=== PATIENT | male | born 1985 | race Caucasian/White ===

== ENCOUNTER 2022-08-17 08:48 | Inpatient (IN) | payer OTHER ==
[~2022-08-17] VITALS: Ht 180.3 cm; Wt 165.5 kg
[2022-08-17] MEDS ORDERED: normal saline 1000ML IV soln IV ONE (10:30)
[2022-08-17] MEDS ORDERED: CefTRIAXone 2gm/D5W 50ml BAG 50 ML IV ONE (10:30)
[2022-08-17] MEDS ORDERED: vancomycin/NS 1 GM ADD-VANTAGE 250 ML IV ONE (10:40)
[2022-08-17 11:04] LABS: BASOPHILS % (AUTO) 0.1 % (0-1); EOSINOPHILS % (AUTO) 0 % (0-6); HEMATOCRIT 39.3 % (42.0-52.0); HEMOGLOBIN 13.6 g/dl (14.0-17.9); LYMPHOCYTES # (AUTO) 0.8 X10'3 (1.1-4.8); LYMPHOCYTES % (AUTO) 4.6 % (21-51); MEAN CORPUSCULAR HEMOGLOBIN 30.9 PG (27.0-31.0); MEAN CORPUSCULAR HGB CONC 34.5 g/dL (33.0-36.5); MEAN CORPUSCULAR VOLUME 89.6 FL (78-98); MONOCYTES # (AUTO) 1.5 X10'3 (0-0.9); MONOCYTES % (AUTO) 8.8 % (2-12); NEUTROPHILS # (AUTO) 14.8 X10'3 (1.8-7.7); NEUTROPHILS % (AUTO) 86.5 % (42-75); PLATELET COUNT 224 X10'3 (140-440); RED BLOOD COUNT 4.39 X10'6 (4.70-6.10); RED CELL DISTRIBUTION WIDTH 13.7 % (11.5-14.5); WHITE BLOOD COUNT 17.1 X10'3 (4.5-11.0)
[2022-08-17 11:24] LABS: ALANINE AMINOTRANSFERASE 17 U/L (12-78); ALBUMIN 2.4 G/DL (3.4-5.0); ALBUMIN/GLOBULIN RATIO 0.5 (1.1-1.5); ALKALINE PHOSPHATASE 118 IU/L (46-116); ANION GAP 9 (8-16); ASPARTATE AMINO TRANSFERASE 13 U/L (10-37); BILIRUBIN,TOTAL 0.6 MG/DL (0.1-1.0); BLOOD UREA NITROGEN 13 MG/DL (7-18); BUN/CREATININE RATIO 10.7 (5.4-32.0); CALCIUM 8.6 MG/DL (8.5-10.1); CHLORIDE 97 MMOL/L (99-107); CREATININE 1.21 MG/DL (0.60-1.10); GLUCOSE 122 MG/DL (70-104); MAGNESIUM 1.8 MG/DL (1.5-2.4); SODIUM 130 MMOL/L (135-145); TOTAL CARBON DIOXIDE 24.3 MMOL/L (24-32); TOTAL PROTEIN 7.4 G/DL (6.4-8.2); eGFR 68 ML/MIN
[2022-08-17 11:26] LABS: POTASSIUM 2.9 MMOL/L (3.5-5.1)
[2022-08-17] MEDS ORDERED: POTASSIUM BICARB 20meq eff tab 20 MEQ TABLET.EFF PO ONE (13:05)
[2022-08-17] MEDS ORDERED: ACET325T57 PO (14:18)
[2022-08-17 15:23] LABS: URINE AMPHETAMINE SCREEN NEGATIVE (Neg); URINE BARBITUATE SCREEN NEGATIVE (Neg); URINE BENZODIAZEPINES SCREEN NEGATIVE (Neg); URINE CANNABINOID SCREEN NEGATIVE (Neg); URINE COCAINE SCREEN NEGATIVE (Neg); URINE METHADONE SCREEN NEGATIVE (Neg); URINE OPIATE SCREEN NEGATIVE (Neg); URINE PHENCYCLIDINE SCREEN NEGATIVE (Neg)
[2022-08-17] MEDS: piperacillin/tazo 4.5gm/100ml 100 ML IV SCH (16:56)
[2022-08-17] MEDS ORDERED: HYDROcodone/acetaminophen 5mg/325mg tablet PO PRN (17:25)
[2022-08-17] MEDS ORDERED: acetaminophen 650mg rectal suppository RC PRN (17:25)
[2022-08-17] MEDS ORDERED: morphine 2 MG/ML inj. syringe IV PRN ×2 (17:25)
[2022-08-17] MEDS ORDERED: mag hydrox/Alum hydrox/simeth 30ml oral suspension PO PRN (17:25)
[2022-08-17] MEDS ORDERED: magnesium hydroxide 30ml (MOM) UD suspension PO PRN (17:25)
[2022-08-17] MEDS ORDERED: magnesium Cl slow-release 64mg tablet PO PRN (17:25)
[2022-08-17] MEDS ORDERED: acetaminophen 325mg tablet PO PRN ×2 (17:25)
[2022-08-17] MEDS ORDERED: bisacodyl 10mg suppository rectal RC PRN (17:25)
[2022-08-17] MEDS ORDERED: ondansetron/PF 4mg/2ml inj IV PRN (17:25)
[2022-08-17] MEDS ORDERED: diphenhydrAMINE 25mg capsule PO PRN (17:25)
[2022-08-17] MEDS ORDERED: potassium Cl 40MEQ/1/2NS 520ml 520 ML IV PRN (17:25)
[2022-08-17] MEDS ORDERED: magnesium 4gm in 100ml NS 100 ML IV PRN (17:25)
[2022-08-17] MEDS ORDERED: HYDROcodone/acetaminophen 10/325mg tab PO PRN (17:25)
[2022-08-17 18:54] LABS: HEMOGLOBIN A1C 5.2 % (4.5-6.2)
[2022-08-17 19:11] LABS: CLARITY,URINE SLIGHTLY CLOUDY (Clear); COLOR,URINE YELLOW (Yellow); GLUCOSE, URINE NEGATIVE (Neg); KETONES,URINE >=80 mg/dl (Neg); LEUKOCYTE ESTERASE ,URINE NEGATIVE (Neg); NITRITES, URINE NEGATIVE (Neg); OCCULT BLOOD,URINE SMALL (Neg); PROTEIN,URINE 30 mg/dl (Neg); UROBILINOGEN,URINE 0.2 E.U/dL (0.2-1.0)
[2022-08-17 19:12] LABS: UA COLLECTION TYPE CLN CATCH MIDSTREAM
[2022-08-17 19:17] LABS: CELLULAR CAST 0-4 /LPF (NEGATIVE); HYALINE CASTS 0-3 /LPF (NEGATIVE); MUCUS STRANDS FEW /LPF (Neg); SQUAMOUS EPITHELIAL CELL,UR MODERATE /LPF (FEW)
[2022-08-17 19:18] LABS: COARSE GRANULAR CAST 0-3 /LPF (NEGATIVE)
[2022-08-17 19:20] LABS: AMORPHOUS URATES 2+; BACTERIA,URINE FEW /HPF (Neg); RBC,URINE 0-2 /HPF (0-2); TRANSITIONAL EPI CELLS,URINE FEW /HPF; WBC,URINE 0-4 /HPF (0-4)
[2022-08-17 19:44] LABS: ALBUMIN 2.3 G/DL (3.4-5.0); ANION GAP 9 (8-16); BLOOD UREA NITROGEN 12 MG/DL (7-18); BUN/CREATININE RATIO 10.6 (5.4-32.0); CALCIUM 8.7 MG/DL (8.5-10.1); CHLORIDE 97 MMOL/L (99-107); CREATININE 1.13 MG/DL (0.60-1.10); GLUCOSE 107 MG/DL (70-104); POTASSIUM 3.6 MMOL/L (3.5-5.1); SODIUM 131 MMOL/L (135-145); TOTAL CARBON DIOXIDE 24.7 MMOL/L (24-32); eGFR 74 ML/MIN
[2022-08-17] MEDS: normal saline 1000ml 1,000 ML IV SCH (19:44)
[2022-08-17] MEDS: K and/or MAG REPLACEMENT MC SCH (19:47)
[2022-08-17 21:30] VITALS: BP 150/83
[2022-08-17] MEDS: lactobacillus rhamnosus 10,000 MMU CELLS/CAPSULE PO SCH (21:55)
[2022-08-17] MEDS: heparin, porcine 5000 units/ml vial SQ SCH (21:55)
[2022-08-17] MEDS: docusate sod 100mg capsule PO SCH (21:56)
[2022-08-17] MEDS: vancomycin/NS 1 GM ADD-VANTAGE 250 ML IV SCH (22:16)
[2022-08-18] MEDS ORDERED: piperacillin/tazo 4.5gm/100ml 100 ML IV SCH
[2022-08-18] MEDS: piperacillin/tazo 4.5gm/100ml 100 ML IV SCH ×3 (00:14→15:53)
[2022-08-18 02:00] VITALS: BP 162/82
[2022-08-18] MEDS ORDERED: amLODIPine 5mg tablet PO ONE (03:15)
--- NOTE | 2022-08-18 03:15 | NUR ---
MD Alberto notified of BP 162/82, all other VSS. No prn's ordered. Patient denies any RX meds taken at home. ordered Norvasc 5mg PO x1. Will await pharmacy and give. Patient with no other complaints at this time.
[2022-08-18] MEDS: vancomycin/NS 1 GM ADD-VANTAGE 250 ML IV SCH ×3 (03:57→20:37)
--- NOTE | 2022-08-18 06:18 | NUR ---
Problems reprioritized. Patient report given, questions answered & plan of care reviewed with Kendell. Addendum: 08/18/22 at 0619 by Demi Pinzon RN Amended: Links added.
[2022-08-18] MEDS: normal saline 1000ml 1,000 ML IV SCH ×2 (06:45→20:42)
[2022-08-18 07:00] VITALS: BP 176/93
[2022-08-18 07:06] LABS: BASOPHILS % (AUTO) 0.1 % (0-1); EOSINOPHILS % (AUTO) 0 % (0-6); HEMATOCRIT 35.3 % (42.0-52.0); LYMPHOCYTES % (AUTO) 5.4 % (21-51); MEAN CORPUSCULAR HEMOGLOBIN 30.4 PG (27.0-31.0); MEAN CORPUSCULAR VOLUME 89.5 FL (78-98); MEAN PLATELET VOLUME 8.3 FL (7.4-10.4); MONOCYTES # (AUTO) 1.7 X10'3 (0-0.9); MONOCYTES % (AUTO) 9.9 % (2-12); NEUTROPHILS # (AUTO) 14.9 X10'3 (1.8-7.7); NEUTROPHILS % (AUTO) 84.6 % (42-75); PLATELET COUNT 226 X10'3 (140-440); RED BLOOD COUNT 3.95 X10'6 (4.70-6.10); RED CELL DISTRIBUTION WIDTH 13.9 % (11.5-14.5); WHITE BLOOD COUNT 17.7 X10'3 (4.5-11.0)
[2022-08-18 07:26] LABS: ALANINE AMINOTRANSFERASE 23 U/L (12-78); ALBUMIN/GLOBULIN RATIO 0.4 (1.1-1.5); ALKALINE PHOSPHATASE 141 IU/L (46-116); ANION GAP 8 (8-16); ASPARTATE AMINO TRANSFERASE 25 U/L (10-37); BILIRUBIN,TOTAL 0.9 MG/DL (0.1-1.0); BLOOD UREA NITROGEN 11 MG/DL (7-18); BUN/CREATININE RATIO 10.2 (5.4-32.0); CALCIUM 8.1 MG/DL (8.5-10.1); CHLORIDE 99 MMOL/L (99-107); CHOL/HDL RATIO 6.4 (0.00-4.99); CHOLESTEROL 103 MG/DL (0-200); CREATININE 1.08 MG/DL (0.60-1.10); GLUCOSE 107 MG/DL (70-104); HDL CHOLESTEROL 16 MG/DL (35-60); LDL CHOLESTEROL 65 MG/DL (50-100); MAGNESIUM 1.9 MG/DL (1.5-2.4); PHOSPHORUS 2.4 MG/DL (2.3-4.5); SODIUM 133 MMOL/L (135-145); TOTAL PROTEIN 6.6 G/DL (6.4-8.2); TRIGLYCERIDES 137 MG/DL (20-135); eGFR 78 ML/MIN
[2022-08-18] MEDS: docusate sod 100mg capsule PO SCH ×2 (08:00→20:00)
[2022-08-18] MEDS: K and/or MAG REPLACEMENT MC SCH ×2 (08:00→20:00)
--- NOTE | 2022-08-18 08:10 | NUR ---
Message: Angie Hooper Pt has a critical lab value K - 3.0 Kendell 8139
--- NOTE | 2022-08-18 08:15 | NUR ---
Noted pt on carb controlled diet w/ A1C 5.2%; BRITTNY d/w RN regarding liberalizing to regular diet if MD agreeable. Addendum: 08/18/22 at [address] Amended: Links added.
[2022-08-18] MEDS: lactobacillus rhamnosus 10,000 MMU CELLS/CAPSULE PO SCH ×2 (08:49→20:40)
[2022-08-18] MEDS: potassium Cl 20 mEq SR tablet PO PRN ×3 (08:49→20:39)
[2022-08-18] MEDS: heparin, porcine 5000 units/ml vial SQ SCH ×2 (08:50→20:40)
--- NOTE | 2022-08-18 09:35 | NUR ---
Pt had a high BP of 176/93(112) this morning. I retook the measurement and pt was at 152/86. Will continue to monitor.
[2022-08-18 11:00] VITALS: BP 153/81
[2022-08-18 15:30] VITALS: BP 151/85
[2022-08-18 18:00] VITALS: BP 168/89
[2022-08-18] MEDS ORDERED: VANCOMYCIN LEVEL IV ONE (19:30)
[2022-08-18 22:00] VITALS: BP 147/82
[2022-08-19] VITALS (7 sets, daily range): BP systolic 94–152; BP diastolic 58–87
[2022-08-19] MEDS: piperacillin/tazo 4.5gm/100ml 100 ML IV SCH ×3 (00:11→16:23)
[2022-08-19] MEDS: vancomycin/NS 1 GM ADD-VANTAGE 250 ML IV SCH ×2 (04:32→05:03)
--- NOTE | 2022-08-19 06:46 | NUR ---
Problems reprioritized. Patient report given, questions answered & plan of care reviewed with CHAPIN Samayoa.
[2022-08-19 07:27] LABS: BASOPHILS % (AUTO) 0.2 % (0-1); EOSINOPHILS % (AUTO) 0.2 % (0-6); HEMATOCRIT 35.6 % (42.0-52.0); HEMOGLOBIN 12.2 g/dl (14.0-17.9); LYMPHOCYTES # (AUTO) 1.3 X10'3 (1.1-4.8); LYMPHOCYTES % (AUTO) 7.6 % (21-51); MEAN CORPUSCULAR HEMOGLOBIN 31.1 PG (27.0-31.0); MEAN CORPUSCULAR HGB CONC 34.3 g/dL (33.0-36.5); MEAN CORPUSCULAR VOLUME 90.5 FL (78-98); MEAN PLATELET VOLUME 7.9 FL (7.4-10.4); MONOCYTES # (AUTO) 1.5 X10'3 (0-0.9); MONOCYTES % (AUTO) 9.3 % (2-12); NEUTROPHILS # (AUTO) 13.8 X10'3 (1.8-7.7); NEUTROPHILS % (AUTO) 82.7 % (42-75); PLATELET COUNT 255 X10'3 (140-440); RED BLOOD COUNT 3.94 X10'6 (4.70-6.10); RED CELL DISTRIBUTION WIDTH 13.9 % (11.5-14.5); WHITE BLOOD COUNT 16.7 X10'3 (4.5-11.0)
[2022-08-19] MEDS: lactobacillus rhamnosus 10,000 MMU CELLS/CAPSULE PO SCH ×2 (07:29→21:35)
[2022-08-19] MEDS: heparin, porcine 5000 units/ml vial SQ SCH ×2 (07:30→21:35)
[2022-08-19 07:53] LABS: ALANINE AMINOTRANSFERASE 33 U/L (12-78); ALBUMIN 1.9 G/DL (3.4-5.0); ALBUMIN/GLOBULIN RATIO 0.4 (1.1-1.5); ALKALINE PHOSPHATASE 220 IU/L (46-116); ANION GAP 8 (8-16); ASPARTATE AMINO TRANSFERASE 34 U/L (10-37); BILIRUBIN,TOTAL 0.9 MG/DL (0.1-1.0); BLOOD UREA NITROGEN 12 MG/DL (7-18); BUN/CREATININE RATIO 12.9 (5.4-32.0); CALCIUM 8.3 MG/DL (8.5-10.1); CHLORIDE 99 MMOL/L (99-107); CREATININE 0.93 MG/DL (0.60-1.10); GLUCOSE 90 MG/DL (70-104); MAGNESIUM 1.9 MG/DL (1.5-2.4); PHOSPHORUS 2.4 MG/DL (2.3-4.5); POTASSIUM 3.3 MMOL/L (3.5-5.1); SODIUM 131 MMOL/L (135-145); TOTAL PROTEIN 6.8 G/DL (6.4-8.2); eGFR > 90 ML/MIN
[2022-08-19] MEDS: K and/or MAG REPLACEMENT MC SCH ×2 (08:00→20:00)
[2022-08-19] MEDS: docusate sod 100mg capsule PO SCH ×2 (08:00→20:00)
[2022-08-19] MEDS: normal saline 1000ml 1,000 ML IV SCH ×2 (09:25→21:30)
[2022-08-19] MEDS: furosemide 20 MG/2 ML vial IV SCH ×2 (10:06→21:34)
[2022-08-19] MEDS: VANCOmycin 1250MG/NS 250ml Bag 250 ML IV SCH ×2 (12:42→21:00)
--- NOTE | 2022-08-19 13:29 | NUR ---
PRESSURE ULCER EDUCATION: DEFINITION: A pressure ulcer is an area of skin that breaks down when you stay in one position too long. The constant pressure against the skin reduces the blood flow to that area and the affected tissue dies. CAUSES: "Being bedridden or in a wheelchair "Fragile skin "Having a chronic condition, such as diabetes or vascular disease "Inability to move certain parts of your body without assistance "Older age "Incontinence of urine or stool SYMPTOMS: "A reddened area that DOES NOT turn white when pressed on - this can be the beginning of a pressure ulcer "A blister, deep sore or a crater - these can be advanced pressure ulcers FIRST AID: "Relieve the pressure on this area "Keep the area clean and dry "Call your primary doctor if you see any of the above symptoms "DO NOT massage the area "DO NOT use a donut shaped or ring shaped pillow- these actually interfere with the blood flow and cause complications PREVENTION: "Check for pressure ulcers everyday "Change position at least every two hours to relieve pressure "Use items that help relieve pressure- pillows, sheepskin, foam padding, and powders. "Keep skin clean and dry "Eat healthy well balanced meals "Exercise daily IF YOU SEE ANY OF THESE SYMPTOMS WHILE IN THE HOSPITAL - TELL YOUR NURSE IMMEDIATELY. IF YOU SEE ANY OF THESE SYMPTOMS WHILE AT HOME OR HAVE ANY QUESTIONS OR CONCERNS ABOUT PRESSURE ULCERS - CALL YOUR PRIMARY DOCTOR IMMEDIATELY. Addendum: 08/19/22 at 1329 by Karol Gould RN Amended: Links added.
[2022-08-19] MEDS: potassium Cl 20 mEq SR tablet PO PRN ×2 (15:00→21:34)
--- NOTE | 2022-08-19 18:33 | NUR ---
Patient in room PCU 3010. I have received report from Danita SAMSON and had the opportunity to ask questions and assume patient care.
[2022-08-20] MEDS: piperacillin/tazo 4.5gm/100ml 100 ML IV SCH ×4 (01:40→23:18)
[2022-08-20 02:00] VITALS: BP 123/75
[2022-08-20] MEDS: potassium Cl 20 mEq SR tablet PO PRN ×3 (02:08→16:44)
[2022-08-20] MEDS: VANCOmycin 1250MG/NS 250ml Bag 250 ML IV SCH ×2 (05:27→13:39)
[2022-08-20 06:00] VITALS: BP 162/90
[2022-08-20 06:46] LABS: BASOPHILS # (AUTO) 0.1 X10'3 (0-0.2); BASOPHILS % (AUTO) 0.6 % (0-1); EOSINOPHILS # (AUTO) 0.1 X10'3 (0-0.9); EOSINOPHILS % (AUTO) 0.6 % (0-6); HEMATOCRIT 32.5 % (42.0-52.0); HEMOGLOBIN 11.2 g/dl (14.0-17.9); LYMPHOCYTES # (AUTO) 1.8 X10'3 (1.1-4.8); LYMPHOCYTES % (AUTO) 11.2 % (21-51); MEAN CORPUSCULAR HEMOGLOBIN 31.1 PG (27.0-31.0); MEAN CORPUSCULAR HGB CONC 34.5 g/dL (33.0-36.5); MEAN CORPUSCULAR VOLUME 90.2 FL (78-98); MEAN PLATELET VOLUME 7.5 FL (7.4-10.4); MONOCYTES # (AUTO) 1.5 X10'3 (0-0.9); MONOCYTES % (AUTO) 9.8 % (2-12); NEUTROPHILS # (AUTO) 12.1 X10'3 (1.8-7.7); NEUTROPHILS % (AUTO) 77.8 % (42-75); PLATELET COUNT 310 X10'3 (140-440); RED BLOOD COUNT 3.61 X10'6 (4.70-6.10); RED CELL DISTRIBUTION WIDTH 13.8 % (11.5-14.5); WHITE BLOOD COUNT 15.6 X10'3 (4.5-11.0)
[2022-08-20 07:11] LABS: ALANINE AMINOTRANSFERASE 45 U/L (12-78); ALBUMIN 1.7 G/DL (3.4-5.0); ALBUMIN/GLOBULIN RATIO 0.4 (1.1-1.5); ALKALINE PHOSPHATASE 270 IU/L (46-116); ANION GAP 7 (8-16); ASPARTATE AMINO TRANSFERASE 34 U/L (10-37); BILIRUBIN,TOTAL 0.8 MG/DL (0.1-1.0); BLOOD UREA NITROGEN 8 MG/DL (7-18); BUN/CREATININE RATIO 8.7 (5.4-32.0); CALCIUM 8.2 MG/DL (8.5-10.1); CHLORIDE 100 MMOL/L (99-107); CREATININE 0.92 MG/DL (0.60-1.10); GLUCOSE 88 MG/DL (70-104); MAGNESIUM 1.7 MG/DL (1.5-2.4); PHOSPHORUS 2.8 MG/DL (2.3-4.5); POTASSIUM 3.2 MMOL/L (3.5-5.1); SODIUM 134 MMOL/L (135-145); TOTAL CARBON DIOXIDE 26.7 MMOL/L (24-32); TOTAL PROTEIN 6.4 G/DL (6.4-8.2); eGFR > 90 ML/MIN
[2022-08-20 07:23] LABS: GIANT PLATELET FEW; PLATELET ESTIMATE NORMAL; TOTAL CELLS COUNTED 100
[2022-08-20] MEDS: K and/or MAG REPLACEMENT MC SCH ×2 (08:00→19:12)
[2022-08-20] MEDS: docusate sod 100mg capsule PO SCH ×2 (08:00→19:13)
[2022-08-20] MEDS ORDERED: PERFLUTREN PROTEIN-A MICROSPHR (Optison) 0.22 MG/ML 3ML VIAL IV ONE (08:20)
[2022-08-20] MEDS: furosemide 20 MG/2 ML vial IV SCH ×2 (08:42→20:28)
[2022-08-20] MEDS: heparin, porcine 5000 units/ml vial SQ SCH ×2 (08:43→20:29)
--- NOTE | 2022-08-20 08:48 | NUR ---
Problems reprioritized. Patient report given, questions answered & plan of care reviewed with Danita SAMSON.
[2022-08-20] MEDS: lactobacillus rhamnosus 10,000 MMU CELLS/CAPSULE PO SCH ×2 (08:52→20:28)
[2022-08-20 12:02] VITALS: BP 157/97
[2022-08-20] MEDS ORDERED: VANCOMYCIN LEVEL IV ONE (12:30)
[2022-08-20 17:30] VITALS: BP 122/72
[2022-08-20] MEDS: VANCOMYCIN 1,500MG in normal saline IV soln 300 ML IV SCH (21:26)
[2022-08-21 02:00] VITALS: BP 148/85
[2022-08-21] MEDS: VANCOMYCIN 1,500MG in normal saline IV soln 300 ML IV SCH ×3 (04:29→21:07)
[2022-08-21 06:00] VITALS: BP 145/86
[2022-08-21 06:36] LABS: BASOPHILS # (AUTO) 0.1 X10'3 (0-0.2); BASOPHILS % (AUTO) 0.5 % (0-1); EOSINOPHILS # (AUTO) 0.2 X10'3 (0-0.9); EOSINOPHILS % (AUTO) 1.1 % (0-6); HEMATOCRIT 33.6 % (42.0-52.0); HEMOGLOBIN 11.7 g/dl (14.0-17.9); LYMPHOCYTES # (AUTO) 2.1 X10'3 (1.1-4.8); LYMPHOCYTES % (AUTO) 11.1 % (21-51); MEAN CORPUSCULAR HEMOGLOBIN 31.3 PG (27.0-31.0); MEAN CORPUSCULAR VOLUME 89.6 FL (78-98); MEAN PLATELET VOLUME 7.5 FL (7.4-10.4); MONOCYTES # (AUTO) 1.6 X10'3 (0-0.9); MONOCYTES % (AUTO) 8.7 % (2-12); NEUTROPHILS # (AUTO) 14.7 X10'3 (1.8-7.7); NEUTROPHILS % (AUTO) 78.6 % (42-75); PLATELET COUNT 430 X10'3 (140-440); RED BLOOD COUNT 3.75 X10'6 (4.70-6.10); RED CELL DISTRIBUTION WIDTH 13.9 % (11.5-14.5); WHITE BLOOD COUNT 18.7 X10'3 (4.5-11.0)
[2022-08-21 06:50] LABS: ALANINE AMINOTRANSFERASE 57 U/L (12-78); ALBUMIN 1.8 G/DL (3.4-5.0); ALBUMIN/GLOBULIN RATIO 0.3 (1.1-1.5); ALKALINE PHOSPHATASE 302 IU/L (46-116); ANION GAP 7 (8-16); ASPARTATE AMINO TRANSFERASE 43 U/L (10-37); BILIRUBIN,TOTAL 0.7 MG/DL (0.1-1.0); BLOOD UREA NITROGEN 8 MG/DL (7-18); BUN/CREATININE RATIO 8.7 (5.4-32.0); CHLORIDE 101 MMOL/L (99-107); CREATININE 0.92 MG/DL (0.60-1.10); GLUCOSE 92 MG/DL (70-104); MAGNESIUM 1.8 MG/DL (1.5-2.4); POTASSIUM 3.3 MMOL/L (3.5-5.1); SODIUM 137 MMOL/L (135-145); TOTAL CARBON DIOXIDE 29.4 MMOL/L (24-32); eGFR > 90 ML/MIN
[2022-08-21 07:27] LABS: PLATELET ESTIMATE NORMAL; TOTAL CELLS COUNTED 100
[2022-08-21] MEDS: lactobacillus rhamnosus 10,000 MMU CELLS/CAPSULE PO SCH ×2 (07:57→19:48)
[2022-08-21] MEDS: heparin, porcine 5000 units/ml vial SQ SCH ×2 (07:57→19:50)
[2022-08-21] MEDS: docusate sod 100mg capsule PO SCH (07:58)
[2022-08-21] MEDS: furosemide 20 MG/2 ML vial IV SCH ×2 (08:00→19:50)
[2022-08-21] MEDS: K and/or MAG REPLACEMENT MC SCH ×2 (08:00→19:58)
[2022-08-21] MEDS: piperacillin/tazo 4.5gm/100ml 100 ML IV SCH ×2 (08:04→15:58)
[2022-08-21 09:41] LABS: C-REACTIVE PROTEIN 9.71 MG/DL (0.0-0.5)
[2022-08-21] MEDS ORDERED: potassium Cl 40MEQ/1/2NS 520ml 520 ML IV PRN ×2 (10:10)
[2022-08-21] MEDS ORDERED: potassium Cl 20 mEq SR tablet PO PRN (10:10)
[2022-08-21] MEDS: potassium Cl 20 mEq SR tablet PO PRN ×3 (10:46→19:49)
[2022-08-21] MEDS ORDERED: iohexol 300mg/ml 100ml inj. ONE (12:35)
--- NOTE | 2022-08-21 13:43 | NUR ---
I REVIEWED ENVIRONMENTAL MANAGEMENT SPECIALIST, PHYSICAL ASSESSMENT OF PATIENT, I AGREE W/PHYSICAL ASSESSMENT OF PT
--- NOTE | 2022-08-21 18:18 | NUR ---
Report given to RN
[2022-08-21] MEDS ORDERED: VANCOMYCIN LEVEL IV ONE (20:30)
[2022-08-22] MEDS: piperacillin/tazo 4.5gm/100ml 100 ML IV SCH ×2 (00:14→08:38)
[2022-08-22] MEDS: VANCOMYCIN 1,500MG in normal saline IV soln 300 ML IV SCH (05:35)
[2022-08-22 06:00] VITALS: BP 142/84
[2022-08-22 06:03] LABS: BASOPHILS # (AUTO) 0.1 X10'3 (0-0.2); BASOPHILS % (AUTO) 0.5 % (0-1); EOSINOPHILS # (AUTO) 0.3 X10'3 (0-0.9); EOSINOPHILS % (AUTO) 1.3 % (0-6); HEMOGLOBIN 11.8 g/dl (14.0-17.9); LYMPHOCYTES # (AUTO) 2.4 X10'3 (1.1-4.8); LYMPHOCYTES % (AUTO) 10.9 % (21-51); MEAN CORPUSCULAR HEMOGLOBIN 30.4 PG (27.0-31.0); MEAN CORPUSCULAR HGB CONC 33.7 g/dL (33.0-36.5); MEAN CORPUSCULAR VOLUME 90.3 FL (78-98); MEAN PLATELET VOLUME 7.5 FL (7.4-10.4); MONOCYTES # (AUTO) 1.4 X10'3 (0-0.9); MONOCYTES % (AUTO) 6.2 % (2-12); NEUTROPHILS # (AUTO) 17.9 X10'3 (1.8-7.7); NEUTROPHILS % (AUTO) 81.1 % (42-75); PLATELET COUNT 476 X10'3 (140-440); RED BLOOD COUNT 3.87 X10'6 (4.70-6.10); WHITE BLOOD COUNT 22.1 X10'3 (4.5-11.0)
[2022-08-22 06:07] LABS: ALANINE AMINOTRANSFERASE 68 U/L (12-78); ALBUMIN 1.8 G/DL (3.4-5.0); ALBUMIN/GLOBULIN RATIO 0.3 (1.1-1.5); ALKALINE PHOSPHATASE 276 IU/L (46-116); ANION GAP 6 (8-16); ASPARTATE AMINO TRANSFERASE 50 U/L (10-37); BILIRUBIN,TOTAL 0.5 MG/DL (0.1-1.0); BLOOD UREA NITROGEN 6 MG/DL (7-18); BUN/CREATININE RATIO 6.1 (5.4-32.0); CALCIUM 8.1 MG/DL (8.5-10.1); CHLORIDE 100 MMOL/L (99-107); CREATININE 0.98 MG/DL (0.60-1.10); GLUCOSE 94 MG/DL (70-104); MAGNESIUM 1.8 MG/DL (1.5-2.4); PHOSPHORUS 3.5 MG/DL (2.3-4.5); POTASSIUM 3.4 MMOL/L (3.5-5.1); SODIUM 135 MMOL/L (135-145); TOTAL CARBON DIOXIDE 28.6 MMOL/L (24-32); TOTAL PROTEIN 7.6 G/DL (6.4-8.2); eGFR 87 ML/MIN
--- NOTE | 2022-08-22 06:25 | NUR ---
Report received from CHAPIN Carter Addendum: 08/22/22 at 0634 by Tiffanie Serna LVN, LVN Report received from CHAPIN Colby.
[2022-08-22] MEDS: furosemide 20 MG/2 ML vial IV SCH (07:10)
[2022-08-22] MEDS: lactobacillus rhamnosus 10,000 MMU CELLS/CAPSULE PO SCH ×2 (07:19→19:31)
[2022-08-22] MEDS: heparin, porcine 5000 units/ml vial SQ SCH ×2 (07:19→19:31)
[2022-08-22] MEDS: potassium Cl 20 mEq SR tablet PO PRN ×3 (07:19→23:00)
[2022-08-22 07:27] LABS: PLATELET ESTIMATE INCREASED; TOTAL CELLS COUNTED 100
[2022-08-22] MEDS: K and/or MAG REPLACEMENT MC SCH ×2 (08:00→20:00)
[2022-08-22] MEDS: cefazolin/dext.iso 2gm/100ml 100 ML IV SCH ×4 (11:00→23:04)
--- NOTE | 2022-08-22 11:27 | NUR ---
per pharmacy do not hand the 1100 cefazolin right after the 1038 dose. Non admin and continue with normal schedule after that
--- NOTE | 2022-08-22 12:25 | NUR ---
Initial: Pt admit DX RLE cellulitis/edema, anemia, and OLIVIA per EMR. PO ~75-100% avg initial carb controlled/fluid restricted diet now w/ mostly 100% recent regular/fluid restricted meals meeting estimated needs. Dietary notified to send double eggs WB for satiety given stature. LBM 08/22 per EMR. No nutrition interventions at this time. Will continue to follow. Rec: 1. continue regular/fluid-restricted diet per MD; double eggs WB for satiety 2. bowel care per rx 3. daily scaled wts Addendum: 08/22/22 at [address] Amended: Links added.
--- NOTE | 2022-08-22 15:01 | NUR ---
i reviewed manager privacy physical assessment of pt and i agree w/physical assessment
--- NOTE | 2022-08-22 18:15 | NUR ---
gave report to lorena beltran
--- NOTE | 2022-08-22 18:33 | NUR ---
Patient in bed with the head of the bed in semi-fowlers position. Patient watching TV and has no signs or symptoms of distress. Call light within reach and all other personal belongings within reach
--- NOTE | 2022-08-23 05:45 | NUR ---
Patient in bed with the bed with the head of the bed, elevated to semi-fowlers position. Patient is awake resting in bed. Patient has no signs or symptoms of distress. call light within reach and all personal belongings within reach
[2022-08-23] MEDS: cefazolin/dext.iso 2gm/100ml 100 ML IV SCH ×2 (05:57→13:19)
--- NOTE | 2022-08-23 06:44 | NUR ---
Patient in room PCU 3010. I have received report from Amado and had the opportunity to ask questions and assume patient care.
[2022-08-23 07:00] VITALS: BP 160/96
[2022-08-23] MEDS: K and/or MAG REPLACEMENT MC SCH ×2 (08:00→20:00)
[2022-08-23] MEDS: heparin, porcine 5000 units/ml vial SQ SCH ×2 (08:52→19:08)
[2022-08-23] MEDS: furosemide 20 MG/2 ML vial IV SCH (08:52)
[2022-08-23] MEDS: lactobacillus rhamnosus 10,000 MMU CELLS/CAPSULE PO SCH ×2 (08:52→19:05)
[2022-08-23 09:50] VITALS: BP 145/80
--- NOTE | 2022-08-23 13:07 | NUR ---
Spoke with infection control MD, no new changes received, continue abx as ordered
[2022-08-23 13:33] LABS: BASOPHILS # (AUTO) 0.1 X10'3 (0-0.2); BASOPHILS % (AUTO) 0.6 % (0-1); EOSINOPHILS # (AUTO) 0.2 X10'3 (0-0.9); EOSINOPHILS % (AUTO) 1.3 % (0-6); HEMATOCRIT 38.7 % (42.0-52.0); HEMOGLOBIN 12.9 g/dl (14.0-17.9); LYMPHOCYTES # (AUTO) 1.6 X10'3 (1.1-4.8); LYMPHOCYTES % (AUTO) 9.2 % (21-51); MEAN CORPUSCULAR HEMOGLOBIN 30.4 PG (27.0-31.0); MEAN CORPUSCULAR HGB CONC 33.2 g/dL (33.0-36.5); MEAN CORPUSCULAR VOLUME 91.4 FL (78-98); MEAN PLATELET VOLUME 7.1 FL (7.4-10.4); MONOCYTES # (AUTO) 1.2 X10'3 (0-0.9); MONOCYTES % (AUTO) 6.9 % (2-12); NEUTROPHILS # (AUTO) 14.7 X10'3 (1.8-7.7); PLATELET COUNT 539 X10'3 (140-440); RED BLOOD COUNT 4.23 X10'6 (4.70-6.10); WHITE BLOOD COUNT 17.9 X10'3 (4.5-11.0)
[2022-08-23 13:50] LABS: PHOSPHORUS 3.2 MG/DL (2.3-4.5)
[2022-08-23 13:59] LABS: TOTAL CELLS COUNTED 100
[2022-08-23 14:00] LABS: PLATELET ESTIMATE INCREASED
[2022-08-23 15:00] LABS: ALBUMIN 1.9 G/DL (3.4-5.0); ANION GAP 5 (8-16); BLOOD UREA NITROGEN 11 MG/DL (7-18); BUN/CREATININE RATIO 10.4 (5.4-32.0); CALCIUM 8.4 MG/DL (8.5-10.1); CHLORIDE 100 MMOL/L (99-107); CREATININE 1.06 MG/DL (0.60-1.10); GLUCOSE 116 MG/DL (70-104); POTASSIUM 3.6 MMOL/L (3.5-5.1); SODIUM 133 MMOL/L (135-145); TOTAL CARBON DIOXIDE 28.4 MMOL/L (24-32); eGFR 80 ML/MIN
--- NOTE | 2022-08-23 16:30 | NUR ---
Patient in bed with the head of the bed elevated to semi-fowlers position. Patient has no signs or symptoms of distress. call light within reach of the patient and all personal belongings within reach.
--- NOTE | 2022-08-23 18:16 | NUR ---
Problems reprioritized. Patient report given, questions answered & plan of care reviewed with Amado.
[2022-08-23] MEDS ORDERED: clindamycin-Cleocin 900mg/D5W 50 ML IV SCH (21:00)
[2022-08-24] MEDS: clindamycin-Cleocin 900mg/D5W 50 ML IV SCH ×3 (00:12→15:20)
--- NOTE | 2022-08-24 05:27 | NUR ---
Patient in bed with the head of the bed elevated to semi-fowlers position. Patient resting with his eyes closed. Patient has no signs or symptoms of distress. Call light within reach and all personal belongings within reach
[2022-08-24 06:00] VITALS: BP 150/85
[2022-08-24 06:51] LABS: BASOPHILS % (AUTO) 0.1 % (0-1); EOSINOPHILS # (AUTO) 0.4 X10'3 (0-0.9); EOSINOPHILS % (AUTO) 2.7 % (0-6); HEMATOCRIT 38.7 % (42.0-52.0); LYMPHOCYTES # (AUTO) 1.5 X10'3 (1.1-4.8); LYMPHOCYTES % (AUTO) 10.4 % (21-51); MEAN CORPUSCULAR HEMOGLOBIN 30.6 PG (27.0-31.0); MEAN CORPUSCULAR HGB CONC 33.6 g/dL (33.0-36.5); MEAN CORPUSCULAR VOLUME 91.1 FL (78-98); MEAN PLATELET VOLUME 7.1 FL (7.4-10.4); MONOCYTES # (AUTO) 1.1 X10'3 (0-0.9); NEUTROPHILS % (AUTO) 78.8 % (42-75); PLATELET COUNT 485 X10'3 (140-440); RED BLOOD COUNT 4.25 X10'6 (4.70-6.10); RED CELL DISTRIBUTION WIDTH 13.9 % (11.5-14.5); WHITE BLOOD COUNT 13.9 X10'3 (4.5-11.0)
--- NOTE | 2022-08-24 06:55 | NUR ---
Patient in room PCU 3010. I have received report from Amado and had the opportunity to ask questions and assume patient care.
[2022-08-24 07:07] LABS: ALANINE AMINOTRANSFERASE 52 U/L (12-78); ALBUMIN/GLOBULIN RATIO 0.3 (1.1-1.5); ALKALINE PHOSPHATASE 174 IU/L (46-116); ANION GAP 4 (8-16); ASPARTATE AMINO TRANSFERASE 31 U/L (10-37); BILIRUBIN,TOTAL 0.4 MG/DL (0.1-1.0); BLOOD UREA NITROGEN 9 MG/DL (7-18); BUN/CREATININE RATIO 8.8 (5.4-32.0); CALCIUM 8.7 MG/DL (8.5-10.1); CHLORIDE 101 MMOL/L (99-107); CREATININE 1.02 MG/DL (0.60-1.10); GLUCOSE 91 MG/DL (70-104); POTASSIUM 3.6 MMOL/L (3.5-5.1); SODIUM 133 MMOL/L (135-145); TOTAL CARBON DIOXIDE 27.7 MMOL/L (24-32); TOTAL PROTEIN 8.1 G/DL (6.4-8.2); eGFR 83 ML/MIN
[2022-08-24] MEDS: lactobacillus rhamnosus 10,000 MMU CELLS/CAPSULE PO SCH ×2 (07:32→19:51)
[2022-08-24] MEDS: furosemide 20 MG/2 ML vial IV SCH (07:32)
[2022-08-24] MEDS: heparin, porcine 5000 units/ml vial SQ SCH ×2 (07:33→19:53)
[2022-08-24 07:35] VITALS: BP 154/91
[2022-08-24] MEDS: K and/or MAG REPLACEMENT MC SCH ×2 (08:00→20:00)
[2022-08-24 11:00] VITALS: BP 146/84
[2022-08-24 18:00] VITALS: BP 162/87
--- NOTE | 2022-08-24 18:05 | NUR ---
Student Medication Administration: For this medication-pass time frame, all medication were reviewed, dispensed, administered and documented per hospital policy by [facility] meka Poole along with RN.
--- NOTE | 2022-08-24 18:19 | NUR ---
Problems reprioritized. Patient report given, questions answered & plan of care reviewed with Amado.
--- NOTE | 2022-08-24 20:26 | NUR ---
Patient in bed with the head of the bed elevated to semi-fowlers position. Patient in bed awake. Patient has no signs or symptoms of distress. Call light within reach of the patient and all personal belongings within reach
[2022-08-25] MEDS: clindamycin-Cleocin 900mg/D5W 50 ML IV SCH
[2022-08-25] MEDS ORDERED: diphenhydrAMINE 50 mg/ml inj IV PRN (00:15)
[2022-08-25 02:00] VITALS: BP 146/85
--- NOTE | 2022-08-25 05:16 | NUR ---
Patient in bed with the head of the bed elevated to semi-fowlers position. Patient is resting with his eyes closed. Patient has no signs or symptoms of distress. Call light within reach of patient and all personal belongings within reach of patient.
[2022-08-25 06:00] VITALS: BP 148/82
[2022-08-25 07:07] LABS: ALANINE AMINOTRANSFERASE 47 U/L (12-78); ALBUMIN/GLOBULIN RATIO 0.3 (1.1-1.5); ALKALINE PHOSPHATASE 163 IU/L (46-116); ANION GAP 6 (8-16); ASPARTATE AMINO TRANSFERASE 31 U/L (10-37); BILIRUBIN,TOTAL 0.4 MG/DL (0.1-1.0); BLOOD UREA NITROGEN 9 MG/DL (7-18); BUN/CREATININE RATIO 9.2 (5.4-32.0); CALCIUM 8.4 MG/DL (8.5-10.1); CHLORIDE 102 MMOL/L (99-107); CREATININE 0.98 MG/DL (0.60-1.10); GLUCOSE 84 MG/DL (70-104); POTASSIUM 3.8 MMOL/L (3.5-5.1); SODIUM 136 MMOL/L (135-145); TOTAL CARBON DIOXIDE 27.8 MMOL/L (24-32); TOTAL PROTEIN 8.3 G/DL (6.4-8.2); eGFR 87 ML/MIN
--- NOTE | 2022-08-25 07:40 | NUR ---
Message: sasha beltran [phone] re: tracie ochoa 3010. pt has no iv access. ok for picc to place midline
[2022-08-25] MEDS: K and/or MAG REPLACEMENT MC SCH (08:00)
[2022-08-25] MEDS: lactobacillus rhamnosus 10,000 MMU CELLS/CAPSULE PO SCH (08:44)
[2022-08-25] MEDS: heparin, porcine 5000 units/ml vial SQ SCH (08:45)
[2022-08-25] MEDS ORDERED: clindamycin 150mg capsule PO ONE (11:35)
--- NOTE | 2022-08-25 11:53 | NUR ---
DM Consult: Pt w/ no PMH DM A1C 5.2% not appropriate for ed. Glu WNL on regular diet/fluid-restricted at this time per EMR. Addendum: 08/25/22 at [address] Amended: Links added. Addendum: 08/25/22 at [address] *CORRECTION* Nutrition Consult "pt/family ed": Per RN, pt requesting general healthy diet nutrition therapy ed focusing on wt loss. Pt seen by BRITTNY for thorough written/verbal general healthy nutrition diet ed w/ RD contact information provided. Pt reports typically drinks most calories from sweetened/caffeinated beverages typically eats on once/day at night. RD reviewed general healthy meal frequency and balanced meal planning guidelines w/ pt. BRITTNY encouraged pt to contact dietitian's office if further nutrition questions/concerns.
[2022-08-25 12:21] VITALS: BP 163/91
--- NOTE | 2022-08-25 14:32 | NUR ---
Nutrition Consult "pt/family ed": Per RN, pt requesting general healthy diet nutrition therapy ed focusing on wt loss. Pt seen by RD for thorough written/verbal general healthy nutrition diet ed w/ RD contact information provided. Pt reports typically drinks most calories from sweetened/caffeinated beverages typically eats on once/day at night. RD reviewed general healthy meal frequency and balanced meal planning guidelines w/ pt. RD encouraged pt to contact dietitian's office if further nutrition questions/concerns. Addendum: 08/25/22 at [address] Amended: Links added.
[2022-08-25 15:15] VITALS: BP 156/92
[2022-08-25] MEDS ORDERED: HYDR-3965 PO (15:55)
[2022-08-25] MEDS ORDERED: LACT1CAP26 PO (15:55)
[2022-08-25] MEDS ORDERED: LINE600T12 PO (15:55)
[2022-08-25] MEDS ORDERED: linezolid 600mg tablet PO ONE (16:00)
--- NOTE | 2022-08-25 17:06 | NUR ---
pt discharged in stable condition. pt belongings and wound care supplies sent with pt. pt educated on follow up appointment. pt also educated on discharge medications.
== END 2022-08-25 17:00 | disposition home or self-care (01) | DRG 602 ==
LOC: ER 08:49 → ED HOLD 17:27 → EDBEDREQ 19:10 → PCU 3S 21:05
PROVIDERS: ADMIT Family Medicine; ATTEND Family Medicine
PROC: 05HY33Z Insertion of Infusion Device into Upper Vein, Percutaneous Approach (ICD-10-PCS; principal; 2022-08-19)
DX: L03.115 Cellulitis of right lower limb (principal); N17.0 Acute kidney failure with tubular necrosis; E87.1 Hypo-osmolality and hyponatremia; Z68.43 Body mass index [BMI] 50.0-59.9, adult; B95.1 Streptococcus, group B, as the cause of diseases classified elsewhere; D64.9 Anemia, unspecified; E66.01 Morbid (severe) obesity due to excess calories; E87.6 Hypokalemia; E88.09 Other disorders of plasma-protein metabolism, not elsewhere classified; F17.200 Nicotine dependence, unspecified, uncomplicated; L27.0 Generalized skin eruption due to drugs and medicaments taken internally; T36.1X5A Adverse effect of cephalosporins and other beta-lactam antibiotics, initial encounter; Y92.230 Patient room in hospital as the place of occurrence of the external cause
CPT/HCPCS: 36415; 36569; 71045; 73590; 73701; 80048; 80053; 80061; 80202; 80305; 81001; 83036; 83605; 83735; 84100; 84145; 85007; 85025; 85651; 86140; 87040; 87070; 87077; 87081; 87186; 93005; 93306; 93971; 97116; 97161; 97530; 99285; A6196; A6209; A6223; A6253; A6261; A6446; A6449; C1751; G0378; J0690; J0696; J1644; J1940; J2405; J2543; J3370; J3490; J7030; J7040; Q0163; Q9967

== ENCOUNTER 2023-01-26 07:50 | Inpatient (IN) | payer OTHER ==
[~2023-01-26] VITALS: Ht 180.3 cm; Wt 162.8 kg
[~2023-01-26 07:50] MED LIST: ACET325T57 PO; LACT1CAP26 PO
[2023-01-26] MEDS ORDERED: levoFLOXACIN-Levaquin 750MG/D5 150 ML IV STA (08:14)
[2023-01-26] MEDS ORDERED: normal saline 1000ML IV soln IV ONE (08:15)
[2023-01-26 09:04] LABS: BASOPHILS # (AUTO) 0.1 X10'3 (0-0.2); BASOPHILS % (AUTO) 0.3 % (0-1); EOSINOPHILS % (AUTO) 0 % (0-6); HEMATOCRIT 40.1 % (42.0-52.0); HEMOGLOBIN 13.5 g/dl (14.0-17.9); LYMPHOCYTES # (AUTO) 0.6 X10'3 (1.1-4.8); LYMPHOCYTES % (AUTO) 2.5 % (21-51); MEAN CORPUSCULAR HGB CONC 33.7 g/dL (33.0-36.5); MEAN CORPUSCULAR VOLUME 88.8 FL (78-98); MEAN PLATELET VOLUME 7.9 FL (7.4-10.4); MONOCYTES % (AUTO) 4.2 % (2-12); NEUTROPHILS # (AUTO) 23.2 X10'3 (1.8-7.7); PLATELET COUNT 289 X10'3 (140-440); RED BLOOD COUNT 4.52 X10'6 (4.70-6.10); RED CELL DISTRIBUTION WIDTH 14.2 % (11.5-14.5); WHITE BLOOD COUNT 24.9 X10'3 (4.5-11.0)
[2023-01-26 09:39] LABS: ALANINE AMINOTRANSFERASE 20 U/L (12-78); ALBUMIN 2.9 G/DL (3.4-5.0); ALBUMIN/GLOBULIN RATIO 0.6 (1.1-1.5); ALKALINE PHOSPHATASE 101 IU/L (46-116); ANION GAP 10 (8-16); ASPARTATE AMINO TRANSFERASE 17 U/L (10-37); BILIRUBIN,TOTAL 0.7 MG/DL (0.1-1.0); BLOOD UREA NITROGEN 11 MG/DL (7-18); BUN/CREATININE RATIO 9.7 (10.0-20.0); CALCIUM 8.1 MG/DL (8.5-10.1); CHLORIDE 96 MMOL/L (99-107); CREATININE 1.13 MG/DL (0.60-1.10); GLUCOSE 132 MG/DL (70-104); MAGNESIUM 1.3 MG/DL (1.5-2.4); POTASSIUM 3.1 MMOL/L (3.5-5.1); SODIUM 130 MMOL/L (135-145); TOTAL CARBON DIOXIDE 23.7 MMOL/L (24-32); TOTAL PROTEIN 7.8 G/DL (6.4-8.2); eGFR 74 ML/MIN
[2023-01-26 10:25] LABS: CLARITY,URINE CLEAR (Clear); COLOR,URINE STRAW (Yellow); GLUCOSE, URINE NEGATIVE (Neg); KETONES,URINE NEGATIVE (Neg); LEUKOCYTE ESTERASE ,URINE NEGATIVE (Neg); NITRITES, URINE NEGATIVE (Neg); OCCULT BLOOD,URINE SMALL (Neg); PROTEIN,URINE NEGATIVE (Neg); UROBILINOGEN,URINE 0.2 E.U/dL (0.2-1.0)
[2023-01-26] MEDS ORDERED: magnesium 4gm in 100ml NS 100 ML IV PRN (10:25)
[2023-01-26] MEDS ORDERED: magnesium Cl slow-release 64mg tablet PO PRN (10:25)
[2023-01-26] MEDS ORDERED: potassium Cl 20 mEq SR tablet PO PRN (10:25)
[2023-01-26] MEDS ORDERED: potassium Cl 40MEQ/1/2NS 520ml 520 ML IV PRN (10:25)
[2023-01-26] MEDS ORDERED: magnesium hydroxide 30ml (MOM) UD suspension PO PRN (10:25)
[2023-01-26] MEDS ORDERED: magnesium 2GM in 50ml NS 50 ML IV PRN (10:25)
[2023-01-26] MEDS ORDERED: mag hydrox/Alum hydrox/simeth 30ml oral suspension PO PRN (10:25)
[2023-01-26] MEDS ORDERED: diphenhydrAMINE 25mg capsule PO ONE (10:25)
[2023-01-26] MEDS ORDERED: acetaminophen 650mg rectal suppository RC PRN (10:25)
[2023-01-26] MEDS ORDERED: ondansetron/PF 4mg/2ml inj IV PRN (10:25)
[2023-01-26] MEDS ORDERED: acetaminophen 325mg tablet PO PRN (10:25)
[2023-01-26 10:29] LABS: UA COLLECTION TYPE CLN CATCH MIDSTREAM
[2023-01-26 10:35] LABS: SQUAMOUS EPITHELIAL CELL,UR MODERATE /LPF (FEW); TRANSITIONAL EPI CELLS,URINE FEW /HPF
[2023-01-26 10:37] LABS: BACTERIA,URINE FEW /HPF (Neg); RBC,URINE 0-2 /HPF (0-2); WBC,URINE 0-4 /HPF (0-4)
[2023-01-26 11:26] LABS: PHOSPHORUS 2.2 MG/DL (2.3-4.5)
[2023-01-26] MEDS: heparin, porcine 5000 units/ml vial SQ SCH ×2 (12:18→19:21)
[2023-01-26] MEDS: vancomycin/NS 1 GM ADD-VANTAGE 250 ML IV SCH ×2 (12:56→20:33)
[2023-01-26] MEDS ORDERED: NO HOME MEDS (13:18)
[2023-01-26] MEDS: clindamycin 300mg/D5W 50mL 50 ML IV SCH ×2 (15:20→19:20)
[2023-01-26 16:43] VITALS: BP 155/95; PULSE 96; RESP 20; TEMP 98.5; O2SAT 94
--- NOTE | 2023-01-26 16:44 | NUR ---
Received patient to room 4017. Patient alert and oriented in no apparent acute distress and denies pain or discomfort at this time. Oriented patient to room and call light. Call light placed within patient's reach. Bed low and locked.
[2023-01-26] MEDS: potassium Cl 20 mEq SR tablet PO PRN ×2 (17:26→23:43)
[2023-01-26 17:43] VITALS: RESP 18; O2SAT 97
[2023-01-26 18:00] VITALS: BP 161/86; PULSE 90; RESP 18; TEMP 100.1; O2SAT 99
--- NOTE | 2023-01-26 18:09 | NUR ---
Problems reprioritized. Patient report given, questions answered & plan of care reviewed with CHAPIN Conte.
--- NOTE | 2023-01-26 19:09 | NUR ---
DR. PHILIP HAS BEEN NOTIFIED FOR PT. HIGH BP 173/87,HR 90 .HE GAVE ME A ORDER FOR LISINOPRIL 20 MG DAILY START NOW AND LASIX 40 MG DAILY START NOW.
[2023-01-26] MEDS: K and/or MAG REPLACEMENT MC SCH (19:12)
[2023-01-26] MEDS ORDERED: furosemide 20MG tablet PO ONE (19:15)
[2023-01-26] MEDS: docusate sod 100mg capsule PO SCH (19:20)
[2023-01-26] MEDS: lisinopril 20mg tablet PO SCH (19:20)
[2023-01-26 20:00] VITALS: RESP 18; O2SAT 99
[2023-01-26] MEDS ORDERED: temazepam 15mg capsule PO PRN (21:00)
[2023-01-26 22:00] VITALS: BP 174/88; PULSE 91; RESP 19; TEMP 98.7; O2SAT 99
[2023-01-26] MEDS: normal saline 1000ml 1,000 ML IV SCH (23:43)
[2023-01-26] MEDS ORDERED: piperacillin/tazo 3.375gm/50ml 50 ML IV ONE (23:46)
[2023-01-26 23:48] VITALS: BP 162/95; PULSE 96
[2023-01-26] MEDS: piperacillin/tazo 3.375gm/50ml 50 ML IV SCH (23:53)
[2023-01-27] MEDS: clindamycin 300mg/D5W 50mL 50 ML IV SCH ×4 (02:06→19:32)
[2023-01-27] MEDS: vancomycin/NS 1 GM ADD-VANTAGE 250 ML IV SCH ×2 (04:11→12:48)
[2023-01-27 05:00] VITALS: BP 166/89; PULSE 92; RESP 19; TEMP 97.9; O2SAT 97
--- NOTE | 2023-01-27 06:20 | NUR ---
Problems reprioritized. Patient report given, questions answered & plan of care reviewed with CHAPIN THOMAS.
--- NOTE | 2023-01-27 06:53 | NUR ---
Patient in room ORTHO 4017. I have received report from Inés and had the opportunity to ask questions and assume patient care.
[2023-01-27] MEDS: K and/or MAG REPLACEMENT MC SCH ×2 (07:06→20:00)
[2023-01-27] MEDS: piperacillin/tazo 3.375gm/50ml 50 ML IV SCH (07:35)
[2023-01-27] MEDS: lisinopril 20mg tablet PO SCH (07:36)
[2023-01-27] MEDS: heparin, porcine 5000 units/ml vial SQ SCH ×2 (07:37→20:15)
[2023-01-27] MEDS: docusate sod 100mg capsule PO SCH ×2 (07:42→20:00)
[2023-01-27 07:43] LABS: BASOPHILS # (AUTO) 0.1 X10'3 (0-0.2); BASOPHILS % (AUTO) 0.5 % (0-1); EOSINOPHILS % (AUTO) 0.3 % (0-6); HEMATOCRIT 36.7 % (42.0-52.0); HEMOGLOBIN 12.4 g/dl (14.0-17.9); LYMPHOCYTES # (AUTO) 1.2 X10'3 (1.1-4.8); MEAN CORPUSCULAR HEMOGLOBIN 30.1 PG (27.0-31.0); MEAN CORPUSCULAR HGB CONC 33.9 g/dL (33.0-36.5); MEAN CORPUSCULAR VOLUME 88.7 FL (78-98); MEAN PLATELET VOLUME 7.8 FL (7.4-10.4); MONOCYTES # (AUTO) 1.2 X10'3 (0-0.9); MONOCYTES % (AUTO) 9.6 % (2-12); NEUTROPHILS # (AUTO) 10.3 X10'3 (1.8-7.7); NEUTROPHILS % (AUTO) 80.6 % (42-75); PLATELET COUNT 257 X10'3 (140-440); RED BLOOD COUNT 4.14 X10'6 (4.70-6.10); RED CELL DISTRIBUTION WIDTH 13.9 % (11.5-14.5); WHITE BLOOD COUNT 12.8 X10'3 (4.5-11.0)
[2023-01-27 08:10] LABS: ALANINE AMINOTRANSFERASE 18 U/L (12-78); ALBUMIN 2.5 G/DL (3.4-5.0); ALBUMIN/GLOBULIN RATIO 0.5 (1.1-1.5); ALKALINE PHOSPHATASE 89 IU/L (46-116); ANION GAP 10 (8-16); ASPARTATE AMINO TRANSFERASE 10 U/L (10-37); BILIRUBIN,TOTAL 0.3 MG/DL (0.1-1.0); BLOOD UREA NITROGEN 13 MG/DL (7-18); BUN/CREATININE RATIO 12.4 (10.0-20.0); CALCIUM 8.3 MG/DL (8.5-10.1); CHLORIDE 101 MMOL/L (99-107); CREATININE 1.05 MG/DL (0.60-1.10); GLUCOSE 97 MG/DL (70-104); MAGNESIUM 1.7 MG/DL (1.5-2.4); POTASSIUM 3.4 MMOL/L (3.5-5.1); SODIUM 134 MMOL/L (135-145); TOTAL CARBON DIOXIDE 23.5 MMOL/L (24-32); TOTAL PROTEIN 7.3 G/DL (6.4-8.2); eGFR 80 ML/MIN
[2023-01-27 10:00] VITALS: BP 148/88; PULSE 90; RESP 20; TEMP 98.1; O2SAT 97
[2023-01-27] MEDS ORDERED: VANCOMYCIN LEVEL IV ONE (11:30)
[2023-01-27] MEDS: normal saline 1000ml 1,000 ML IV SCH ×2 (12:48→19:30)
--- NOTE | 2023-01-27 13:55 | NUR ---
WOUND INFECTION EDUCATION PROVIDED BY WOUND CARE 1. Patient instructed to call their primary doctor, or go the ED immediately if any of the following symptoms occur: * Increased pain in wound * Increase in drainage from the wound * Redness in the skin surrounding the wound * Warmth in the skin surrounding the wound * Bleeding from the wound * Temperature of 101 or greater 2. If any of these occur while in the hospital tell a nurse immediately. Addendum: 01/27/23 at 1400 by Galilea Méndez LVN Amended: Links added.
[2023-01-27] MEDS: potassium Cl 20 mEq SR tablet PO PRN ×2 (15:44→20:14)
[2023-01-27 17:00] VITALS: BP 164/97; PULSE 90; RESP 20; TEMP 97.9; O2SAT 98
--- NOTE | 2023-01-27 18:00 | NUR ---
Patient in room ORTHO 4017. I have received report from CHAPIN Acuna and had the opportunity to ask questions and assume patient care.
--- NOTE | 2023-01-27 18:34 | NUR ---
Problems reprioritized. Patient report given, questions answered & plan of care reviewed with Morris.
--- NOTE | 2023-01-27 19:01 | NUR ---
Patient in room ORTHO 4011. I have received report from Kalpana SAMSON and had the opportunity to ask questions and assume patient care.
[2023-01-27] MEDS: VANCOmycin 1250MG/NS 250ml Bag 250 ML IV SCH (20:10)
[2023-01-27 22:00] VITALS: BP 157/95; PULSE 88; RESP 18; TEMP 98.8; O2SAT 98
[2023-01-28] MEDS: clindamycin 300mg/D5W 50mL 50 ML IV SCH ×2 (01:20→09:33)
[2023-01-28] MEDS: normal saline 1000ml 1,000 ML IV SCH ×2 (02:55→15:30)
[2023-01-28] MEDS: potassium Cl 20 mEq SR tablet PO PRN (03:28)
[2023-01-28] MEDS: VANCOmycin 1250MG/NS 250ml Bag 250 ML IV SCH ×2 (03:28→13:44)
[2023-01-28 06:00] VITALS: BP 138/76; PULSE 86; RESP 17; TEMP 98; O2SAT 98
--- NOTE | 2023-01-28 06:27 | NUR ---
Problems reprioritized. Patient report given, questions answered & plan of care reviewed with Suzanne SAMSON.
[2023-01-28 06:46] LABS: BASOPHILS # (AUTO) 0.1 X10'3 (0-0.2); BASOPHILS % (AUTO) 0.7 % (0-1); EOSINOPHILS # (AUTO) 0.2 X10'3 (0-0.9); EOSINOPHILS % (AUTO) 2.3 % (0-6); HEMOGLOBIN 11.9 g/dl (14.0-17.9); LYMPHOCYTES # (AUTO) 1.5 X10'3 (1.1-4.8); LYMPHOCYTES % (AUTO) 18.7 % (21-51); MEAN CORPUSCULAR HEMOGLOBIN 30.4 PG (27.0-31.0); MEAN CORPUSCULAR VOLUME 89.3 FL (78-98); MEAN PLATELET VOLUME 7.9 FL (7.4-10.4); MONOCYTES # (AUTO) 0.8 X10'3 (0-0.9); MONOCYTES % (AUTO) 9.7 % (2-12); NEUTROPHILS # (AUTO) 5.5 X10'3 (1.8-7.7); NEUTROPHILS % (AUTO) 68.6 % (42-75); PLATELET COUNT 275 X10'3 (140-440); RED BLOOD COUNT 3.92 X10'6 (4.70-6.10); RED CELL DISTRIBUTION WIDTH 14.1 % (11.5-14.5)
[2023-01-28 06:52] LABS: ALANINE AMINOTRANSFERASE 18 U/L (12-78); ALBUMIN 2.5 G/DL (3.4-5.0); ALBUMIN/GLOBULIN RATIO 0.5 (1.1-1.5); ALKALINE PHOSPHATASE 91 IU/L (46-116); ANION GAP 8 (8-16); ASPARTATE AMINO TRANSFERASE 10 U/L (10-37); BILIRUBIN,TOTAL 0.3 MG/DL (0.1-1.0); BLOOD UREA NITROGEN 10 MG/DL (7-18); BUN/CREATININE RATIO 10.9 (10.0-20.0); CALCIUM 8.5 MG/DL (8.5-10.1); CHLORIDE 103 MMOL/L (99-107); CREATININE 0.92 MG/DL (0.60-1.10); GLUCOSE 83 MG/DL (70-104); MAGNESIUM 1.8 MG/DL (1.5-2.4); POTASSIUM 3.7 MMOL/L (3.5-5.1); SODIUM 136 MMOL/L (135-145); TOTAL CARBON DIOXIDE 24.8 MMOL/L (24-32); TOTAL PROTEIN 7.5 G/DL (6.4-8.2); eGFR > 90 ML/MIN
[2023-01-28 08:00] VITALS: RESP 16
[2023-01-28] MEDS: K and/or MAG REPLACEMENT MC SCH (08:00)
[2023-01-28] MEDS: docusate sod 100mg capsule PO SCH (08:00)
[2023-01-28] MEDS: lisinopril 20mg tablet PO SCH (08:21)
[2023-01-28] MEDS: heparin, porcine 5000 units/ml vial SQ SCH (08:22)
[2023-01-28 09:57] VITALS: BP 148/93; PULSE 79; RESP 20; TEMP 98.6; O2SAT 99
[2023-01-28] MEDS ORDERED: clindamycin 150mg capsule PO SCH (14:00)
[2023-01-28] MEDS ORDERED: linezolid 600mg tablet PO SCH (15:20)
[2023-01-28] MEDS ORDERED: AMLO5TAB16 PO (15:47)
[2023-01-28] MEDS ORDERED: LACT1CAP55 PO (15:47)
[2023-01-28] MEDS ORDERED: LISI20TA28 PO (15:47)
[2023-01-28] MEDS ORDERED: LINE600T11 PO (15:47)
--- NOTE | 2023-01-28 17:30 | NUR ---
Patient discharge instructions reviewed with patient and patient verbalize understanding. Patient was given 1st dose of Zyvox PO per MD instructions prior to discharge. Patients IV dc'd cannula intact. Pictures taken of RLE prior to discharge. Patient taken with all his belongings including cell phone cable strander and switch game to vehicle parked in emergency parking lot.
[2023-01-28] MEDS ORDERED: VANCOMYCIN LEVEL IV ONE (19:30)
== END 2023-01-28 17:40 | disposition home or self-care (01) | DRG 872 ==
LOC: ER 07:51 → ED HOLD 10:34 → ORTHO 4S 16:20
PROVIDERS: ADMIT Family Medicine; ATTEND Family Medicine
DX: A41.9 Sepsis, unspecified organism (principal); L03.115 Cellulitis of right lower limb; E87.1 Hypo-osmolality and hyponatremia; Z68.43 Body mass index [BMI] 50.0-59.9, adult; E66.01 Morbid (severe) obesity due to excess calories; E87.6 Hypokalemia; N28.9 Disorder of kidney and ureter, unspecified; Z88.1 Allergy status to other antibiotic agents; Z88.8 Allergy status to other drugs, medicaments and biological substances; Z71.3 Dietary counseling and surveillance
CPT/HCPCS: 36415; 71045; 80053; 80202; 81001; 83605; 83735; 84100; 84145; 85025; 87040; 87081; 93971; 99285; G0378; J1644; J1956; J2543; J3370; J3490; J7030; J7040; Q0163